=== PATIENT | male | born 1990 | race Caucasian/White ===

== ENCOUNTER 2018-12-17 17:26 | Inpatient (IN) | payer OTHER ==
[~2018-12-17] VITALS: Ht 167.6 cm; Wt 60.8 kg
[~2018-12-17 17:26] MED LIST: ACET650S26 GT; ALLA266C2 TP; CLON0.5T GT; DOXY100C41 PO; MAG30ORA GT; MERO500V3 IV; METO-295 GT; METO25TA20 GT; MUPI22OI7 TP; PANT40TA2 GT; Silver Sulfadiazine TP; Zolpidem Tartrate GT
--- NOTE | 2018-12-17 17:40 | NUR ---
CALLED RT FOR VENT.
--- NOTE | 2018-12-17 17:41 | NUR ---
MARCELINO FROM SNF FOR COFFEE GROUNDS LEAKING FROM GT. PT AOX0, NON VERBAL, PT ON MONITOR, VSS, NAD NOTED, PENDING MD OSORIO
--- NOTE | 2018-12-17 17:53 | NUR ---
PT RECEIVED IN ER FROM SUBACUTE, TRACHED W/ 7.0 PORTEX. BREATH SOUNDS EQUAL, TRACH TUBE SECURED, PATENT. NO RESP DISTRESS NOTED. PT PLACED ON PB840 VENT W/ SETTINGS PER TRANSPORT RT. VENT IN RED OUTLET, VENT ALARMS CHECKED, AMBUBAG AT BEDSIDE, PT SX'ED AND LAVAGED TO SMALL AMOUNTS OF THICK PALE YELLOW SECRETIONS. Addendum: 12/17/18 at 1755 by MARLENY BONILLA RT Amended: Links added.
[2018-12-17] MEDS ORDERED: IV NS 0.9% 1,000 ML BAG IV ONE (18:30)
[2018-12-17] MEDS ORDERED: PANTOPRAZOLE 40 MG VIAL IV ONE (18:30)
[2018-12-17] MEDS ORDERED: ONDANSETRON HCL/PF 4 MG/2 ML VIAL IV ONE (18:30)
[2018-12-17 18:52] LABS: BASOPHILS # (AUTO) 0.1 /CMM (0.0-0.2); BASOPHILS % (AUTO) 0.4 % (0.0-2.0); EOSINOPHILS % (AUTO) 0.7 % (0.0-6.0); HEMATOCRIT 36 % (39-51); HEMOGLOBIN 11.7 g/dL (13.5-17.5); LYMPHOCYTES # (AUTO) 2.1 /CMM (0.8-4.8); LYMPHOCYTES % (AUTO) 16.9 % (20.0-44.0); MEAN CORPUSCULAR HGB CONC 33 g/dl (31.0-36.0); MEAN CORPUSCULAR VOLUME 73 fL (80-96); MONOCYTES # (AUTO) 1.3 /CMM (0.1-1.30); MONOCYTES % (AUTO) 10.8 % (2.0-12.0); NEUTROPHILS # (AUTO) 8.8 /CMM (1.8-8.9); NEUTROPHILS % (AUTO) 71.2 % (43.0-81.0); PLATELET COUNT (AUTO) 353 /CMM (150-450); RED BLOOD CELL COUNT(AUTO) 4.94 MIL/uL (4.5-6.0); WHITE BLOOD COUNT (AUTO) 12.4 K/uL (4.3-11.0)
[2018-12-17] MEDS ORDERED: ONDANSETRON HCL/PF 4 MG/2 ML VIAL ONE (18:52)
[2018-12-17] MEDS ORDERED: PANTOPRAZOLE 40 MG VIAL ONE (18:52)
[2018-12-17 19:04] LABS: ALBUMIN 4.1 g/dL (3.4-5.0); BILIRUBIN,DIRECT 0.2 mg/dL (0.0-0.2); BILIRUBIN,TOTAL 0.6 mg/dL (0.2-1.0); CALCIUM, SERUM 9.4 mg/dL (8.5-10.1); CREATININE 0.4 mg/dL (0.6-1.3); TOTAL PROTEIN, SERUM 8.7 g/dL (6.4-8.2)
--- NOTE | 2018-12-17 20:10 | NUR ---
VERONICA WAS CALLED. MERCHANDISE SUPERVISOR WAS PAGED.
--- NOTE | 2018-12-17 20:14 | NUR ---
NICOLASA [phone]
--- NOTE | 2018-12-17 20:31 | NUR ---
CALLED HOUSE SUP FOR TELE BED.
--- NOTE | 2018-12-17 20:45 | NUR ---
TELE BED 325-2 GIVEN
--- NOTE | 2018-12-17 21:11 | NUR ---
REPORT GIVEN TO ESTRELLITA WHYTE FOR [facility]; PT WILL BE TRANSPORTED TO 3RD FLOOR
[2018-12-17 21:14] VITALS: BP 91/65
[2018-12-17] MEDS ORDERED: ZOLPIDEM TARTRATE 5 MG TABLET PO PRN (22:00)
[2018-12-17] MEDS ORDERED: ONDANSETRON HCL/PF 4 MG/2 ML VIAL IVP PRN (22:00)
[2018-12-17] MEDS ORDERED: Z GUARD REMEDY 2 OZ OINT TP PRN (22:00)
[2018-12-17] MEDS ORDERED: ACETAMINOPHEN 325 MG TABLET PO PRN (22:00)
[2018-12-17 22:03] LABS: EOSINOPHILS % (MANUAL) 1 % (0-4); LYMPHOCYTES % (MANUAL) 16 % (16-48); MONOCYTES % (MANUAL) 9 % (0-11.0); NEUTROPHILS % (MANUAL) 74 (42-76)
--- NOTE | 2018-12-17 23:00 | NUR ---
TOP SPOTTER NOTE: RECEIVED PATIENT FROM ER, NO ACUTE DISTRESS NOTED. VENT SETTING IN PLACE. BREATHING EVEN AND UNLABORED, NO SOB NOTED. IV TO LAC IN PLACE. G-TUBE IN PLACE. BED LOCKED AND IN LOWEST POSITION, WILL CONTINUE TO MONITOR.
[2018-12-18] VITALS: BP 139/82
[2018-12-18 04:00] VITALS: BP 135/99
[2018-12-18] MEDS: HYDROCODONE/APAP 5/325MG 1 EACH TABLET PO PRN (04:17)
--- NOTE | 2018-12-18 04:30 | NUR ---
TRESTLE BUILDER NOTE: PATIENT NOTED WITH ELEVATED HR AT 150, NORCO 5/325MG 1 TAB VIA G-TUBE GIVEN PER MD ORDER. WILL CONTINUE TO MONITOR.
--- NOTE | 2018-12-18 06:35 | NUR ---
RT Pt received trach'd and on [facility] vent w charted settings. Vent is plugged into red outlet w bmv @ hob. Alarms are set and audible. Trach is secure and patent. Pt sx'd w no adverse reactions. No respiratory distress noted t/o shift. Addendum: 12/18/18 at 0636 by VANDANA FERRER RT Amended: Links added.
--- NOTE | 2018-12-18 06:45 | NUR ---
COVERED BUCKLE ASSEMBLER NOTE: PATIENT RESTING IN BED, NO ACUTE DISTRESS NOTED. VENT SETTING IN PLACE. BREATHING EVEN AND UNLABORED, NO SOB NOTED. IV TO LAC IN PLACE. G-TUBE IN PLACE. BED LOCKED AND IN LOWEST POSITION, WILL ENDORSE TO DAY NURSE TO CONTINUE WITH PLAN OF CARE.
--- NOTE | 2018-12-18 07:50 | NUR ---
OPERATIONS ANALYST OPENING NOTES RECEIVED PT RESTING IN BED WITH HOB ELEVATED. PT IS NONVERBAL. CURRENTLY ON A MECHANICAL VENT, SATURATING AT 99%. RT AT BEDSIDE. PT ABLE TO TOLERATE VENT SETTINGS. IV SITE TO LAC INTACT, NO INFILTRATION NOTED. DRESSING KEPT CLEAN AND DRY. PT IS CONTRACTED TO BOTH UPPER/LOWER EXTREMITIES. PT FREQUENTLY NEEDS SUCTIONING. SKIN IRRITATION NOTED TO GT STOMA SITE AND IS LEAKING FLUID. WILL REPOSITION PT PER PROTOCOL. SAFETY MEASURES ARE IN PLACE. WILL MONITOR THROUGHOUT SHIFT FOR CONTINUITY OF CARE.
[2018-12-18 07:51] LABS: BASOPHILS # (AUTO) 0.1 /CMM (0.0-0.2); BASOPHILS % (AUTO) 0.5 % (0.0-2.0); EOSINOPHILS % (AUTO) 0.6 % (0.0-6.0); HEMATOCRIT 39 % (39-51); HEMOGLOBIN 12.6 g/dL (13.5-17.5); LYMPHOCYTES # (AUTO) 2.1 /CMM (0.8-4.8); LYMPHOCYTES % (AUTO) 12.9 % (20.0-44.0); MEAN CORPUSCULAR HGB CONC 32 g/dl (31.0-36.0); MEAN CORPUSCULAR VOLUME 72 fL (80-96); MONOCYTES # (AUTO) 1.7 /CMM (0.1-1.30); NEUTROPHILS # (AUTO) 12.6 /CMM (1.8-8.9); PLATELET COUNT (AUTO) 394 /CMM (150-450); RED BLOOD CELL COUNT(AUTO) 5.37 MIL/uL (4.5-6.0); WHITE BLOOD COUNT (AUTO) 16.6 K/uL (4.3-11.0)
[2018-12-18 08:00] VITALS: BP 102/69
[2018-12-18 08:06] LABS: CALCIUM, SERUM 9.7 mg/dL (8.5-10.1); CREATININE 0.4 mg/dL (0.6-1.3); MAGNESIUM 2.2 mg/dL (1.8-2.4); PHOSPHORUS 3.8 mg/dL (2.5-4.9)
--- NOTE | 2018-12-18 08:15 | NUR ---
MS RN NOTES-- PT WAS SEEN AND EXAMINED BY DR. BECERRA W/ ORDERS FOR GI CONSULT, SPUTUM CULTURE, TO REMAIN NPO AND NO GT FEEDING AT THIS TIME, IV NS BOLUS 1L, THEN NS @80ML/HR. ORDERS READ BACK AND VERIFIED. ORDERS NOTED AND CARRIED OUT.
[2018-12-18 08:17] LABS: POTASSIUM 2.8 mmol/L (3.5-5.1)
[2018-12-18] MEDS: PANTOPRAZOLE 40 MG VIAL IV SCH ×2 (08:59→20:56)
[2018-12-18] MEDS ORDERED: POTASSIUM CL. PREMIX PERIPHER. 50 ML IV SCH (09:00)
[2018-12-18] MEDS ORDERED: IV NS 0.9% 1,000 ML IV PRN (09:07)
[2018-12-18] MEDS ORDERED: IV NS 0.9% 1,000 ML BAG IV PRN (09:30)
[2018-12-18] MEDS ORDERED: FEE PK DOSING 1 MIN EA MC ONE (10:11)
[2018-12-18] MEDS: VANCOMYCIN 0.75 GM in IV D5W 250 ML IV SCH ×2 (10:20→18:10)
[2018-12-18 11:01] LABS: LYMPHOCYTES % (MANUAL) 8 % (16-48); MONOCYTES % (MANUAL) 7 % (0-11.0); NEUTROPHILS % (MANUAL) 82 (42-76); REACTIVE LYMPHOCYTES 3 % (0-0)
[2018-12-18] MEDS ORDERED: LEVE500S9 GT (11:01)
[2018-12-18] MEDS ORDERED: IPRA0.2S9 IH ×2 (11:01)
[2018-12-18] MEDS ORDERED: FLUD0.1T PO (11:01)
[2018-12-18] MEDS ORDERED: ALBU2.5V38 IH ×2 (11:01)
[2018-12-18] MEDS ORDERED: NA P133E RC (11:01)
[2018-12-18] MEDS ORDERED: ASPI-1169 PO (11:01)
[2018-12-18] MEDS ORDERED: BISA10SU61 RC (11:01)
[2018-12-18] MEDS ORDERED: CLON0.5T12 GT (11:01)
[2018-12-18] MEDS ORDERED: NUT.237L30 GT (11:01)
[2018-12-18] MEDS ORDERED: ACET650S26 GT ×3 (11:01)
[2018-12-18] MEDS ORDERED: DOCU50LI GT (11:01)
[2018-12-18] MEDS ORDERED: PRED20TA GT (11:07)
[2018-12-18] MEDS ORDERED: OXCA600T5 GT (11:07)
[2018-12-18] MEDS ORDERED: MAGN400O6 GT (11:07)
[2018-12-18] MEDS ORDERED: CHOL50004 GT (11:07)
[2018-12-18] MEDS ORDERED: GLYC1TAB12 GT (11:07)
[2018-12-18] MEDS ORDERED: HYDR-4384 GT (11:07)
--- NOTE | 2018-12-18 12:00 | NUR ---
ADULT LITERACY TEACHER NOTES-- MIDLINE PLACED BY MIDLINE NURSE KATERYNA Thompson8. KEPT INTACT, DRESSING KEPT CLEAN AND DRY.
--- NOTE | 2018-12-18 12:08 | NUR ---
RT recd pt trached intact and secured on mech vent alarms on and audible bag and mask at hob sx thick yellow large amount of secretion, sample sent for lab culture no sob att will cont to monitor
[2018-12-18] MEDS: MEROPENEM 1 G in IV NS 0.9% 100 ML IV SCH ×2 (12:42→21:07)
[2018-12-18] MEDS ORDERED: MEROPENEM 500 MG in IV NS 0.9% 50 ML IV SCH (13:00)
[2018-12-18] MEDS: POTASSIUM CL. PREMIX PERIPHER. 50 ML IV SCH ×6 (14:58→20:56)
[2018-12-18 16:00] VITALS: BP 118/69
--- NOTE | 2018-12-18 18:01 | NUR ---
MS RN NOTES-- PT SEEN AND EXAMINED BY MONSE BOLTON W/ ORDERS FOR GASTROCCULT. ORDERS READ BACK AND VERIFIED. NOTED AND CARRIED OUT.
--- NOTE | 2018-12-18 18:46 | NUR ---
HOUSEHOLD APPLIANCES SALESPERSON CLOSING NOTES ALL DUE MEDS GIVEN, NEEDS MET AND RENDERED. PT IS NONVERBAL, OBTUNDED, AFEBRILE. RESPIRATIONS ARE EVEN AND UNLABORED, NOT IN ANY ACUTE DISTRESS NOTED. NO FACIAL GRIMACING OR MOANING NOTED. MIDLINE INTACT TO YASHIRA, NO INFILTRATION NOTED. DRESSING KEPT CLEAN AND DRY. SAFETY MEASURES ARE IN PLACE. REPOSITIONED PER PROTOCOL. COLLECTED GASTROOCCULT AND LAB PICKED UP SPECIMEN. WILL ENDORSE TO NEXT SHIFT FOR CONTINUITY OF CARE.
[2018-12-18 20:00] VITALS: BP 116/66
--- NOTE | 2018-12-18 20:00 | NUR ---
RN PM OPENING NOTE RESPIRATIONS ARE EVEN AND UNLABORED, NOT IN ANY ACUTE DISTRESS. ON MECHANICAL VENT SETTINGS AND ALARMS CHECKED AND MACHINE PLUGGED INTO RED OUTLET. CONTINUOUS PULSEOX MONITOR APPLIED SATURATION IS 99% WITH HEARTRATE OF 128. NO FACIAL GRIMACING OR MOANING NOTED. MIDLINE INTACT TO YASHIRA, NO INFILTRATION NOTED. DRESSING KEPT CLEAN AND DRY. SAFETY MEASURES ARE IN PLACE. REPOSITIONED PER PROTOCOL. COLLECTED GASTROOCCULT BECAUSE LAB CALLED AND SAID FIRST SAMPLE WAS NOT ENOUGHT. RM CLOSE TO NURSING STATION DOOR CURTAIN LEFT OPEN.
[2018-12-18 20:56] LABS: BASOPHILS # (AUTO) 0.1 /CMM (0.0-0.2); BASOPHILS % (AUTO) 0.4 % (0.0-2.0); HEMATOCRIT 36 % (39-51); HEMOGLOBIN 11.5 g/dL (13.5-17.5); LYMPHOCYTES # (AUTO) 1.8 /CMM (0.8-4.8); MEAN CORPUSCULAR HGB CONC 32 g/dl (31.0-36.0); MEAN CORPUSCULAR VOLUME 74 fL (80-96); MONOCYTES # (AUTO) 1.4 /CMM (0.1-1.30); MONOCYTES % (AUTO) 11.2 % (2.0-12.0); NEUTROPHILS # (AUTO) 9.5 /CMM (1.8-8.9); NEUTROPHILS % (AUTO) 73.4 % (43.0-81.0); PLATELET COUNT (AUTO) 381 /CMM (150-450); RED BLOOD CELL COUNT(AUTO) 4.88 MIL/uL (4.5-6.0); WHITE BLOOD COUNT (AUTO) 12.9 K/uL (4.3-11.0)
[2018-12-18] MEDS: SUCRALFATE 1 G/10 ML UDC GT SCH (21:20)
[2018-12-19] VITALS: BP 142/84
[2018-12-19] MEDS: VANCOMYCIN 0.75 GM in IV D5W 250 ML IV SCH ×2 (01:24→10:34)
[2018-12-19] MEDS: HYDROCODONE/APAP 5/325MG 1 EACH TABLET PO PRN (02:08)
--- NOTE | 2018-12-19 02:08 | NUR ---
pain norco administered patient appears to be in discomfort, patient has facial grimacing, and has tears in eyes with facial grimacing. norco administered as prn. will cont to monitor.
[2018-12-19 03:09] LABS: APPEARANCE,URINE SL CLOUDY (CLEAR); BILIRUBIN,URINE 1+ (NEGATIVE); BLOOD, URINE TRACE-INTA Ery/uL (NEGATIVE); COLOR,URINE YELLOW (YELLOW); KETONES,URINE 2+ (NEGATIVE); LEUKOCYTE ESTERASE ,URINE NEGATIVE (NEGATIVE); NITRITE, URINE NEGATIVE (NEGATIVE); PROTEIN,URINE TRACE mg/dl (NEGATIVE); UGLUCOSE NEGATIVE (NEGATIVE)
[2018-12-19 03:36] LABS: BACTERIA,URINE None seen /HPF (None Seen); SQUAMOUS EPITHELIAL CELL,UR Few /HPF (None Seen); URINE AMORPHOUS URATE Few /HPF (None Seen); WBC,URINE 0-2 /HPF (0-3)
[2018-12-19 04:00] VITALS: BP 120/79
[2018-12-19] MEDS: MEROPENEM 1 G in IV NS 0.9% 100 ML IV SCH ×3 (05:34→21:16)
--- NOTE | 2018-12-19 06:34 | NUR ---
RN PM OPENING NOTE RESPIRATIONS ARE EVEN AND UNLABORED, NOT IN ANY ACUTE DISTRESS. ON MECHANICAL VENT SETTINGS AND ALARMS CHECKED AND MACHINE PLUGGED INTO RED OUTLET. CONTINUOUS PULSEOX MONITOR reads SATURATION IS 100% WITH HEARTRATE OF 142. NO FACIAL GRIMACING OR MOANING NOTED. MIDLINE INTACT TO YASHIRA, NO INFILTRATION NOTED. DRESSING KEPT CLEAN AND DRY. SAFETY MEASURES ARE IN PLACE. RM CLOSE TO NURSING STATION DOOR CURTAIN LEFT OPEN Addendum: 12/19/18 at 0638 by GUNJAN ARREDONDO RN should be labeled closing note.
[2018-12-19 06:47] LABS: CALCIUM, SERUM 9.2 mg/dL (8.5-10.1); CREATININE 0.4 mg/dL (0.6-1.3); POTASSIUM 3.6 mmol/L (3.5-5.1)
--- NOTE | 2018-12-19 07:59 | NUR ---
RN NOTES PATIENT NON-VERBAL, BREATHING EVEN AND UNLABORED, NO SOB NOTED, TOLERATING CURRENT VENT SETTINGS, PATIENT NOTED TO HAVE 101.2 TEMPERATURE. COOLING MEASURES PROVIDED. WILL INFORM MD. AC MIDLINE PATENT AND FLUSHING, NS RUNNING AT 80ML/HR. PATIENT ON ISOFLEX MATTRESS, DAYANA. HEELS OFFLOADED, KEPT COMFORTABLE, NEEDS ATTENDED, CALL LIGHT WITHIN REACH, WILL CONTINUE TO MONITOR.
[2018-12-19 08:00] VITALS: BP 122/70
--- NOTE | 2018-12-19 08:05 | NUR ---
WOUND CARE CONSULT WOUND CARE RECEIVED CONSULT FOR ABDOMINAL EXCORIATION, BUTTOCK REDNESS,LFA REDNESS/DRYNESS. WOUND CARE WILL DEFER CONSULT AND TREATMENT PLANS TO PLASTIC SURGICAL TEAM THEY ARE CURRENTLY FOLLOWING THIS PATIENT. PATIENT WITH MARK AT 8, ALL PRESSURE ULCER PREVENTION MEASURES ARE NOTED TO BE IN PLACE. WILL SEE PRN.
--- NOTE | 2018-12-19 08:13 | NUR ---
RN NOTES INFORMED DR. WASHIGNTON RE: TEMPERATURE OF 101.[address] HR OF 140[address] WASHINGTON GAVE VERBAL ORDERS. ORDERS NOTED AND CARRIED OUT.
[2018-12-19] MEDS ORDERED: LORAZEPAM INJ 2 MG/ML VIAL IV STA (08:18)
[2018-12-19] MEDS ORDERED: HYDROCODONE/APAP 5/325MG 1 EACH TABLET GT PRN (08:30)
[2018-12-19] MEDS ORDERED: IPRATROPIUM NEB FS 0.5 MG/2.5 ML AMPUL.NEB IH PRN (08:30)
[2018-12-19] MEDS ORDERED: Z GUARD REMEDY 2 OZ OINT TP PRN (08:30)
[2018-12-19] MEDS ORDERED: IV NS 0.9% 1,000 ML IV PRN (08:30)
[2018-12-19] MEDS ORDERED: GLUCERNA 1.2 1,000 ML BOTTLE GT SCH (08:30)
[2018-12-19] MEDS ORDERED: BISACODYL SUPP (10 MG) 10 MG/SUPP.RECT SUPP.RECT RC PRN (08:30)
[2018-12-19] MEDS ORDERED: ACETAMINOPHEN 650 MG/20.3 ML UDC GT PRN (08:30)
[2018-12-19] MEDS ORDERED: MAGNESIUM HYDROXIDE 30 ML UDC GT PRN (08:30)
[2018-12-19] MEDS ORDERED: IV NS 0.9% 1,000 ML BAG IV ONE (08:30)
[2018-12-19] MEDS: SUCRALFATE 1 G/10 ML UDC GT SCH ×4 (08:38→21:09)
--- NOTE | 2018-12-19 09:35 | NUR ---
RT RECD PT TRACHED INTACT & SECURED ON MECH VENT JAMI ORDERED SETTINGS ALARMS ON & AUDIBLE BAG AND MASK AT HOB SX LARGE AMOUNT OF YELLOW SECRETIONS NO SOB WILL CONT TO MONITOR
[2018-12-19 09:40] LABS: BASOPHILS % (AUTO) 0.4 % (0.0-2.0); EOSINOPHILS % (AUTO) 0.5 % (0.0-6.0); HEMATOCRIT 30 % (39-51); HEMOGLOBIN 9.5 g/dL (13.5-17.5); LYMPHOCYTES # (AUTO) 0.7 /CMM (0.8-4.8); LYMPHOCYTES % (AUTO) 5.2 % (20.0-44.0); MEAN CORPUSCULAR HGB CONC 32 g/dl (31.0-36.0); MEAN CORPUSCULAR VOLUME 74 fL (80-96); MONOCYTES # (AUTO) 1.2 /CMM (0.1-1.30); MONOCYTES % (AUTO) 9.6 % (2.0-12.0); NEUTROPHILS # (AUTO) 10.6 /CMM (1.8-8.9); NEUTROPHILS % (AUTO) 84.3 % (43.0-81.0); PLATELET COUNT (AUTO) 286 /CMM (150-450); RED BLOOD CELL COUNT(AUTO) 4.07 MIL/uL (4.5-6.0); WHITE BLOOD COUNT (AUTO) 12.5 K/uL (4.3-11.0)
[2018-12-19] MEDS: IV NS 0.9% 1,000 ML IV PRN (09:42)
[2018-12-19] MEDS: DOCUSATE SODIUM LIQ 100 MG/10 ML UDC GT SCH ×2 (09:43→17:17)
[2018-12-19] MEDS: clonazePAM 0.5 MG TABLET GT SCH ×2 (09:43→21:09)
[2018-12-19] MEDS: predniSONE 20 MG TABLET GT SCH (09:43)
[2018-12-19] MEDS: CHOLECALCIFEROL 1,000 UNIT TABLET (VIT D3) GT SCH (09:43)
[2018-12-19] MEDS: GLYCOPYRROLATE 1 MG TABLET GT SCH ×2 (09:43→17:17)
[2018-12-19] MEDS: OXCARBAZEPINE 150 MG TABLET GT SCH ×2 (09:44→21:09)
[2018-12-19] MEDS: PANTOPRAZOLE 40 MG VIAL IV SCH ×2 (09:45→21:09)
[2018-12-19] MEDS: ACETAMINOPHEN 650 MG/20.3 ML UDC GT SCH ×2 (09:47→21:16)
[2018-12-19] MEDS: LEVETIRACETAM SOL (5 ML) 100 MG/ML UDC GT SCH ×2 (09:47→17:21)
[2018-12-19 09:50] LABS: CALCIUM, SERUM 7.7 mg/dL (8.5-10.1); CREATININE 0.3 mg/dL (0.6-1.3); POTASSIUM 3.2 mmol/L (3.5-5.1)
[2018-12-19] MEDS: FLUDROCORTISONE 0.1 MG TABLET PO SCH ×2 (10:33→17:17)
[2018-12-19 12:00] VITALS: BP 89/74
[2018-12-19] MEDS: GLUCERNA 1.2 1,000 ML BOTTLE GT PRN (12:59)
[2018-12-19] MEDS ORDERED: ALBUTEROL FS 2.5 MG/0.5 ML VIAL.NEB NEB PRN (13:30)
[2018-12-19] MEDS: IPRATROPIUM NEB FS 0.5 MG/2.5 ML AMPUL.NEB IH SCH ×2 (14:39→19:37)
[2018-12-19] MEDS: ALBUTEROL FS 2.5 MG/0.5 ML VIAL.NEB NEB SCH ×2 (14:40→19:38)
[2018-12-19 16:00] VITALS: BP 104/61
--- NOTE | 2018-12-19 16:00 | NUR ---
RN NOTES RESIDUAL CHECKED WITH 10CC.
--- NOTE | 2018-12-19 16:47 | NUR ---
RN NOTES INFORMED DR. BECERRA RE: K LEVEL OF 3.2 TWICE VIA TEXT. NO NEW ORDER AT THIS TIME.
[2018-12-19] MEDS: ASPIRIN 81 MG TAB.CHEW PO SCH (17:17)
[2018-12-19] MEDS: VANCOMYCIN 1 GM in IV D5W 250 ML IV SCH (17:21)
--- NOTE | 2018-12-19 18:50 | NUR ---
RN NOTES PATIENT NON-VERBAL, TOLERATING VENT SETTINGS WELL, TELE MONITOR SHOWS SR 80, TURNED AND REPOSITIONED EVERY 2 HOURS, GTF ONGOING AND TOLERATING WELL, TF RESIDUAL 10CC. HOB ELEVATED AT ALL TIMES FOR ASPIRATION PRECAUTION. Z-GUARD AND MEPILEX APPLIED. NEEDS ATTENDED, CALL LIGHT WITHIN REACH, RECEIVED ORDERS FROM HOANG JOYNER NP. ORDER NOTED AND CARRIED OUT. WILL ENDORSE TO FOOT SETTER FOR [facility].
[2018-12-19] MEDS ORDERED: POTASSIUM CHLORIDE 20 MEQ POWDER PACKET GT ONE (19:30)
--- NOTE | 2018-12-19 19:38 | NUR ---
PT RECEIVED TRACHED W/ 7.0 PORTEX. TRACH TUBE SECURED AND PATENT. PT IS NON VERBAL. NO RESP DISTRESS NOTED AT THIS TIME. VENT PLUGGED INTO RED OUTLET, VENT ALARMS CHECKED, AMBUBAG AT BEDSIDE, Q6 BREATHING TX GIVEN PER MD'S ORDER. NO ADVERSE REACTION NOTED. PT SUCTIONED AND LAVAGED TO SMALL AMOUNTS OF THICK PALE YELLOW SECRETIONS. WILL CONTINUE TO MONITOR THE PT.
[2018-12-19 20:00] VITALS: BP 114/66
--- NOTE | 2018-12-19 20:00 | NUR ---
PRESTIDIGITATOR NOTES NERA FROM ID CAME IN AND CHECKED PT. WITH NEW ORDERS MADE. ORDERS NOTED AND CARRIED OUT. WILL CONTINUE TO MONITOR.
--- NOTE | 2018-12-19 20:48 | NUR ---
COMMERCIAL FISHING VESSEL OPERATOR NOTES FIERRO INSERTED DRAINING YELLOWISH OUTPUT MODERATE IN AMOUNT. PT TOLERATED WELL. NO S/SX OF ANY PAIN OR DISCOMFORT AT THIS TIME. WILL CONTINUE TO MONITOR.
[2018-12-20] VITALS: BP 112/59
[2018-12-20] MEDS: LEVETIRACETAM SOL (5 ML) 100 MG/ML UDC GT SCH ×3 (01:20→17:19)
[2018-12-20] MEDS: IPRATROPIUM NEB FS 0.5 MG/2.5 ML AMPUL.NEB IH SCH ×4 (01:21→19:14)
[2018-12-20] MEDS: ALBUTEROL FS 2.5 MG/0.5 ML VIAL.NEB NEB SCH ×4 (01:21→19:14)
[2018-12-20] MEDS: IV NS 0.9% 1,000 ML IV PRN ×2 (01:27→17:12)
[2018-12-20] MEDS: VANCOMYCIN 1 GM in IV D5W 250 ML IV SCH ×3 (01:30→18:00)
[2018-12-20 04:00] VITALS: BP 111/61
[2018-12-20] MEDS: MEROPENEM 1 G in IV NS 0.9% 100 ML IV SCH ×3 (05:35→20:56)
--- NOTE | 2018-12-20 06:38 | NUR ---
OFFICE RN NOTES PT NON VERBAL. RESPONSIVE TO TACTILE STIMULI. WITH SAME VENT SETTINGS. NOT IN ANY DISTRESS. NO SOB NOTED. NO S/SX OF ANY PAIN OR DISCOMFORT AT THIS TIME. ON TELE ST @ 120 WITH IVF INFUSING WELL. WITH GT CLAMPED. WITH F/C DRAINING TO YELLOWISH OUTPUT MODERATE IN AMOUNT. AM CARE DONE. MONITORED ACCORDINGLY. CALL LIGHT WITHIN REACH. BED IN LOWEST POSITION. SR UP X3 WITH BED ALARM ON FOR SAFETY. WILL ENDORSE TO NEXT SHIFT.
--- NOTE | 2018-12-20 07:02 | NUR ---
SAMPLE SAWYER NOTES PATIENT IN BED, HOB ELEVATED, NON VERBAL, ON VENT. NO ACUTE DISTRESS NOTED. BREATHING UNLABORED. IV ACCESS PATENT AND INTACT, NO REDNESS OR SWELLING NOTED. SAFETY MEASURES IN PLACE. CALL LIGHT WITHIN REACH. WILL CONTINUE TO MONITOR ACCORDINGLY.
[2018-12-20] MEDS: SUCRALFATE 1 G/10 ML UDC GT SCH ×4 (07:30→21:42)
[2018-12-20] MEDS: PANTOPRAZOLE 40 MG VIAL IV SCH ×2 (08:18→20:56)
[2018-12-20] MEDS: CHOLECALCIFEROL 1,000 UNIT TABLET (VIT D3) GT SCH (09:00)
[2018-12-20] MEDS: DOCUSATE SODIUM LIQ 100 MG/10 ML UDC GT SCH ×2 (09:00→17:00)
[2018-12-20] MEDS: clonazePAM 0.5 MG TABLET GT SCH ×2 (09:00→20:56)
[2018-12-20] MEDS: predniSONE 20 MG TABLET GT SCH (09:00)
[2018-12-20] MEDS: GLYCOPYRROLATE 1 MG TABLET GT SCH ×2 (09:00→17:11)
[2018-12-20] MEDS: OXCARBAZEPINE 150 MG TABLET GT SCH ×2 (09:00→20:56)
[2018-12-20] MEDS: ACETAMINOPHEN 650 MG/20.3 ML UDC GT SCH ×2 (09:00→20:56)
[2018-12-20] MEDS: FLUDROCORTISONE 0.1 MG TABLET PO SCH ×2 (09:00→17:11)
--- NOTE | 2018-12-20 10:20 | NUR ---
DIGITAL CARTOGRAPHER NOTES EGD DONE BY DR MOCTEZUMA, PATIENT IN STABLE CONDITION. RECEIVED NEW ORDERS MAY CONTINUE TUBE FEEDING AND USE GT ACCESS AT 1300 TODAY.
[2018-12-20] MEDS: GLUCERNA 1.2 1,000 ML BOTTLE GT PRN (13:36)
[2018-12-20 14:00] LABS: ALBUMIN 2.9 g/dL (3.4-5.0); BILIRUBIN,TOTAL 0.5 mg/dL (0.2-1.0); CALCIUM, SERUM 8.1 mg/dL (8.5-10.1); CREATININE 0.2 mg/dL (0.6-1.3); POTASSIUM 3.6 mmol/L (3.5-5.1); TOTAL PROTEIN, SERUM 6.6 g/dL (6.4-8.2)
[2018-12-20 16:00] VITALS: BP 119/70
[2018-12-20] MEDS: ASPIRIN 81 MG TAB.CHEW PO SCH (17:11)
[2018-12-20] MEDS: NYSTATIN/TRIAMCIN OINT 15 GM TUBE TP SCH (18:22)
--- NOTE | 2018-12-20 19:00 | NUR ---
SUPERCALENDER OPERATOR HELPER NOTES PATIENT IN BED, HOB ELEVATED, NON VERBAL, ON VENT. NO ACUTE DISTRESS NOTED. BREATHING UNLABORED. IV ACCESS PATENT AND INTACT, NO REDNESS OR SWELLING NOTED. TOLERATING GTUBE FEEDING WELL.DUE MEDICATIONS GIVEN, NO ASE NOTED, NEEDS ATTENDED AND ANTICIPATED. SAFETY MEASURES IN PLACE. CALL LIGHT WITHIN REACH. ENDORSED TO NIGHT NURSE FOR CONTINUITY OF CARE.
--- NOTE | 2018-12-20 19:49 | NUR ---
PT RCVD TRACH'D ON MECHANICAL VENT WITH CHARTED SETTINGS. HHN TX JAMI WELL. SX DONE. PT TRACH IS PATENT AND SECURE. VENT PLUGGED INTO RED OUTLET. ALARMS ARE ON AND AUDIBLE. AMBU BAG AT BEDSIDE. Addendum: 12/20/18 at 1950 by SHAMAR RAYO RT Amended: Links added.
[2018-12-20 20:34] VITALS: BP 131/74
[2018-12-20] MEDS: VANCOMYCIN 0.75 GM in IV D5W 250 ML IV SCH (21:42)
[2018-12-21 00:59] VITALS: BP 106/69
[2018-12-21] MEDS: ALBUTEROL FS 2.5 MG/0.5 ML VIAL.NEB NEB SCH ×4 (01:07→19:54)
[2018-12-21] MEDS: IPRATROPIUM NEB FS 0.5 MG/2.5 ML AMPUL.NEB IH SCH ×4 (01:07→19:53)
[2018-12-21] MEDS: LEVETIRACETAM SOL (5 ML) 100 MG/ML UDC GT SCH ×3 (01:11→16:35)
[2018-12-21] MEDS: IV NS 0.9% 1,000 ML IV PRN (02:06)
[2018-12-21 04:00] VITALS: BP 116/65
[2018-12-21] MEDS: MEROPENEM 1 G in IV NS 0.9% 100 ML IV SCH ×3 (05:10→20:27)
[2018-12-21] MEDS: VANCOMYCIN 0.75 GM in IV D5W 250 ML IV SCH ×3 (06:08→21:46)
--- NOTE | 2018-12-21 06:28 | NUR ---
CRYPTOLOGIC TECHNICIAN NOTES PT NON VERBAL. RESPONSIVE TO TACTILE STIMULI. WITH SAME VENT SETTINGS. NOT IN ANY DISTRESS. NO SOB NOTED. NO S/SX OF ANY PAIN OR DISCOMFORT AT THIS TIME. ON TELE SR @ 70 WITH IVF INFUSING WELL. WITH GTF INFUSING WELL. WITH F/C DRAINING TO YELLOWISH OUTPUT MODERATE IN AMOUNT. AM CARE DONE. MONITORED ACCORDINGLY. CALL LIGHT WITHIN REACH. BED IN LOWEST POSITION. SR UP X3 WITH BED ALARM ON FOR SAFETY. WILL ENDORSE TO NEXT SHIFT.
--- NOTE | 2018-12-21 07:30 | NUR ---
TERRAZZO WORKER APPRENTICE OPENING NOTES RECEIVED PATIENT ON BED IN SIDE LYING POSITION, ON VENT SETTING. REPOSITIONED PATIENT SUPINE WITH HEAD OF BED ELEVATED. PATIENT NON VERBAL AND RESPONSIVE TO TACTILE STIMULI. RESPIRATION EVEN AND NON LABORED WITH NO ACUTE RESPIRATORY DISTRESS. ABDOMEN SOFT AND NON DISTENDED WITH ACTIVE BOWEL SOUNDS, ON FIERRO CATHETER OUTPUT OF YELLOW CLEAR URINE. PATIENT HAS NO S/SX OF DISCOMFORT AT THIS TIME. RUNNING G TUBE FEEDING AT 55 ML/HR. WITH LEFT UPPER ARM MIDLINE RUNNING NS AT 150 ML/HR. PER TELE MONITOR OF SR 91. WILL CONTINUE TO EVALUATE CARE.
[2018-12-21 07:52] LABS: CREATININE 0.3 mg/dL (0.6-1.3); POTASSIUM 3.3 mmol/L (3.5-5.1)
--- NOTE | 2018-12-21 07:56 | NUR ---
RT NOTE PT RCVD TRACH'D ON MECHANICAL VENT WITH CHARTED SETTINGS. HHN TX JAMI WELL. SX DONE. PT TRACH IS PATENT AND SECURE. VENT PLUGGED INTO RED OUTLET. ALARMS ARE ON AND AUDIBLE. AMBU BAG AT BEDSIDE.
[2018-12-21 08:00] VITALS: BP 111/79
[2018-12-21] MEDS: PANTOPRAZOLE 40 MG VIAL IV SCH ×2 (08:53→21:16)
[2018-12-21] MEDS: FLUDROCORTISONE 0.1 MG TABLET PO SCH ×2 (08:53→16:35)
[2018-12-21] MEDS: ACETAMINOPHEN 650 MG/20.3 ML UDC GT SCH ×2 (08:53→21:16)
[2018-12-21] MEDS: DOCUSATE SODIUM LIQ 100 MG/10 ML UDC GT SCH ×2 (08:53→16:35)
[2018-12-21] MEDS: CHOLECALCIFEROL 1,000 UNIT TABLET (VIT D3) GT SCH (08:53)
[2018-12-21] MEDS: OXCARBAZEPINE 150 MG TABLET GT SCH ×2 (08:54→21:16)
[2018-12-21] MEDS: SUCRALFATE 1 G/10 ML UDC GT SCH ×4 (08:54→21:16)
[2018-12-21] MEDS: clonazePAM 0.5 MG TABLET GT SCH ×2 (08:54→21:15)
[2018-12-21] MEDS: GLYCOPYRROLATE 1 MG TABLET GT SCH ×2 (08:54→16:35)
[2018-12-21] MEDS: predniSONE 20 MG TABLET GT SCH (08:54)
[2018-12-21] MEDS: NYSTATIN/TRIAMCIN OINT 15 GM TUBE TP SCH (08:58)
[2018-12-21 10:24] LABS: BASOPHILS % (AUTO) 0.6 % (0.0-2.0); HEMATOCRIT 27 % (39-51); HEMOGLOBIN 8.8 g/dL (13.5-17.5); LYMPHOCYTES # (AUTO) 1.5 /CMM (0.8-4.8); LYMPHOCYTES % (AUTO) 27.7 % (20.0-44.0); MEAN CORPUSCULAR HGB CONC 33 g/dl (31.0-36.0); MEAN CORPUSCULAR VOLUME 74 fL (80-96); MONOCYTES # (AUTO) 0.6 /CMM (0.1-1.30); MONOCYTES % (AUTO) 11.9 % (2.0-12.0); NEUTROPHILS # (AUTO) 3.1 /CMM (1.8-8.9); NEUTROPHILS % (AUTO) 56.8 % (43.0-81.0); PLATELET COUNT (AUTO) 212 /CMM (150-450); RED BLOOD CELL COUNT(AUTO) 3.63 MIL/uL (4.5-6.0); WHITE BLOOD COUNT (AUTO) 5.4 K/uL (4.3-11.0)
[2018-12-21] MEDS ORDERED: POTASSIUM CHLORIDE 20 MEQ POWDER PACKET GT SCH (10:30)
--- NOTE | 2018-12-21 11:47 | NUR ---
BROOCH AND BRACELET MAKER NOTES VANCOMYCIN ORDERED CAN BE GIVEN TODAY SINCE IT IS ADJUSTED ALREADY PER [facility], LAST VANCOMYCIN TROUGH ON 12/20/18 WITH 21. NO ORDER OF RE-DRAW AT THIS TIME. WILL CONTINUE TO MONITOR.
[2018-12-21 16:00] VITALS: BP 136/72
[2018-12-21] MEDS: GLUCERNA 1.2 1,000 ML BOTTLE GT PRN (16:27)
--- NOTE | 2018-12-21 19:03 | NUR ---
CHANGE MANAGEMENT EXPERT CLOSING NOTES PATIENT NON VERBAL IN SUPINE POSITION, ON VENT SETTING RESPONSIVE TO TACTILE AND LIGHT PAIN STIMULI. RESPIRATION EVEN AND NON LABORED WITH NO ACUTE RESPIRATORY DISTRESS. ABDOMEN SOFT AND NON DISTENDED WITH ACTIVE BOWEL SOUNDS, ON FIERRO CATHETER OUTPUT OF YELLOW CLEAR URINE. G-TUBE PRESENT WITH NO RESIDUAL NOTED RUNNING 50 ML/HR WITH JEVITY 1.2. PATIENT HAS NO S/SX OF DISCOMFORT AT THIS TIME. IV SITE AT LEFT AC GAUGE 20 AND LEFT UPPER ARM MIDLINE NO S/SX OF INFILTRATION. PER TELE MONITOR OF SR 66. ENDORSED PATIENT CASE TO NEXT SHIFT.
--- NOTE | 2018-12-21 19:21 | NUR ---
RN NOTES: RN NOTES: RECEIVED AWAKE ON BED,SEMI FOWLERS POSITION,NON VERBAL,RESPONDING TO TACTILE STIMULI, PAIN AND TOUCH, ON VENTILATOR, NO SIGN OF SOB OR ANY RESPIRATORY DISTRESS,ORIENTED TO NIGHT STAFF, ON FIERRO CATH DRAINING INTO YELLOWISH COLORED URINE AT 400 CC LEVEL , YASHIRA MIDLINE AND CANNULA LAC G#20 PATENT, NPO, G-TUBE INTACT/WORKING WITH FEEDING ONGOING GLUCERNA 1.2 AT 50 ML/HR X 24H, FALL,SAFETY AND ASPIRATION PRECAUTION OBSERVED, BED LOW AND LOCKED, CALL LIGHT WITHIN EASY REACH, NOTICE A LOT OF SALIVA/BUBBLES COMING OUT FROM THE MOUTH AND NOSE AREA, SUCTIONED AND CLEANED.KEPT ON CLOSE VISUAL CHECK.
[2018-12-21 20:00] VITALS: BP 147/92
--- NOTE | 2018-12-21 20:08 | NUR ---
RT NOTE PT RECEIVED ON [facility] VENT ON THE FOLLOWING SETTINGS: AC 10, 500, 40%, +5. PT SX'D, LARGE THICK YELLOW SECRETIONS. RN IS AWARE. BREATHING TX GIVEN, NO ADVERSE REACTIONS NOTED. NO RESP DISTRESS NOTED AT THIS TIME. VENT IS PLUGGED INTO RED OUTLET. ALARMS ARE ON AND AUDIBLE. AMBU BAG IS AT BEDSIDE. WILL CONT TO MONITOR PT THROUGHOUT THE NIGHT. Addendum: 12/21/18 at 2011 by MARLENA SAENZ RT Amended: Links added.
[2018-12-21 20:11] VITALS: BP 147/92
--- NOTE | 2018-12-21 23:01 | NUR ---
RN NOTES: ON TELE MONITOR SR-60,TURNING AND SUCTIONING DONE,DUE HHN RENDERED BY RT,FEEDING ONGOING, DUE IV/ATB GIVEN, SEIZURE PRECAUTION OBSERVED.ON CLOSE VISUAL CHECK.
[2018-12-22] VITALS: BP 135/80
[2018-12-22] MEDS: LEVETIRACETAM SOL (5 ML) 100 MG/ML UDC GT SCH ×2 (00:26→08:54)
[2018-12-22] MEDS: ALBUTEROL FS 2.5 MG/0.5 ML VIAL.NEB NEB SCH ×2 (00:52→07:15)
[2018-12-22] MEDS: IPRATROPIUM NEB FS 0.5 MG/2.5 ML AMPUL.NEB IH SCH ×2 (00:53→07:15)
--- NOTE | 2018-12-22 02:47 | NUR ---
RN NOTES: TURNING AND REPOSITIONING DONE, SPONGE BATH RENDERED, SUCTIONING DONE,CLEAN AND CHANGE, DRESSING DONE ON PEG SITE, MEPELEX APPLIED ON BONY PROMINENCES, HAD BM,WATERY STOOL BROWNISH IN COLOR, SPECIMEN COLLECTED FOR STOOL OB,Z -GUARD APPLIED ON BUTTOCKS AND INGUINAL AREA. LAB NOTIFIED READY FOR P/U SPOKE WITH MARÍA, KEPT ON CLOSE WATCH.
[2018-12-22 04:00] VITALS: BP 130/80
[2018-12-22] MEDS: MEROPENEM 1 G in IV NS 0.9% 100 ML IV SCH (04:09)
[2018-12-22 04:45] VITALS: BP 130/80
[2018-12-22] MEDS: VANCOMYCIN 0.75 GM in IV D5W 250 ML IV SCH (05:02)
--- NOTE | 2018-12-22 06:40 | NUR ---
RN NOTES: ASLEEP AT SHORT INTERVALS,NON VERBAL,QUADRIPLEGIA WITH CONTRACTURES, ON TELE MONITOR SR-80,ON MECHANICAL VENTILATOR, PEG SITE DRESSING INTACT WITH PEG FEED OF GLUCERNA 1.2 AT 50 ML/HR ONGOING, FIERRO CATH DRAINING WELL, TOTAL OUTPUT=1,650,STOOL OB SENT TO LAB,NO LABS FOR TODAY, LATEST V/S AFEBRILE BP-130/80, FOR POSSIBLE EGD IF GI BLEED CONTINUE AND CHANGING OF PEG SITE,FALL,SAFETY,SEIZURE AND ASPIRATION PRECAUTION OBSERVED.ON CLOSE WATCH. ENDORSED FOR THE CONTINUITY OF CARE.
--- NOTE | 2018-12-22 07:18 | NUR ---
RT RECEIVED PT TRACH ON VENT WITH NOTED SETTINGS. WEB WEAVER DONE AND TRACH IS SECURE. VENT ALARMS CHECKED AND AUDIBLE. VENT PLUGGED IN RED OUTLET. AMBU BAG AND SPARE TRACH NOTED BEDSIDE. B/S DAYANA RHONCHI, SX WITH MOD THK QUIROGA SECRETIONS. BREATHING TX GIVEN. PT TOLERATING SETTINGS WELL. PT ON CONTINUOUS PULSE OX. NO SOB OR RESP DISTRESS NOTED. WILL CONTINUE TO MONITOR T/O SHIFT.
--- NOTE | 2018-12-22 07:54 | NUR ---
SHREDDING MACHINE OPERATOR OPENING NOTES RECEIVED PATIENT ON BED, SUPINE WITH HOB ELEVATED. PATIENT NON VERBAL AND AROUSABLE WITH TACTILE STIMULI. RESPIRATION EVEN AND NON LABORED WITH NO ACUTE RESPIRATORY DISTRESS, ON MECHANICAL VENTILATOR SETTING. ABDOMEN SOFT AND NON DISTENDED WITH ACTIVE BOWEL SOUNDS, ON F/C WITH YELLOW URINE OUTPUT. SKIN WARM TO TOUCH AND DRY, BOTH HEELS AND ELBOW PLACED ON OFFLOAD DUE TO CONTRACTURES. NO S/SX OF PAIN AND DISCOMFORT NOTED UPON ASSESSMENT. ON G-TUBE FEEDING OF GLUCERNA 1.2 AT 50 ML/HR AND TOLERATED WELL. IV SITE AT LEFT AC GAUGE 20, AND LEFT UPPER ARM MIDLINE, SITES NO S/SX OF INFILTRATION. WILL CONTINUE TO EVALUATE CARE AND FREQUENT MONITORING.
--- NOTE | 2018-12-22 07:56 | NUR ---
LIGHTHOUSE KEEPER NOTES PER TELE MONITOR PATIENT WITH SINUS RHYTHM 82.
[2018-12-22 08:00] VITALS: BP 148/87
[2018-12-22] MEDS: PANTOPRAZOLE 40 MG VIAL IV SCH (08:54)
[2018-12-22] MEDS: CHOLECALCIFEROL 1,000 UNIT TABLET (VIT D3) GT SCH (08:54)
[2018-12-22] MEDS: DOCUSATE SODIUM LIQ 100 MG/10 ML UDC GT SCH (08:54)
[2018-12-22] MEDS: ACETAMINOPHEN 650 MG/20.3 ML UDC GT SCH (08:54)
[2018-12-22] MEDS: predniSONE 20 MG TABLET GT SCH (08:54)
[2018-12-22] MEDS: GLYCOPYRROLATE 1 MG TABLET GT SCH (08:54)
[2018-12-22] MEDS: FLUDROCORTISONE 0.1 MG TABLET PO SCH (08:54)
[2018-12-22] MEDS: OXCARBAZEPINE 150 MG TABLET GT SCH (08:54)
[2018-12-22] MEDS: clonazePAM 0.5 MG TABLET GT SCH (08:55)
[2018-12-22] MEDS: NYSTATIN/TRIAMCIN OINT 15 GM TUBE TP SCH (08:55)
[2018-12-22] MEDS: SUCRALFATE 1 G/10 ML UDC GT SCH (08:57)
[2018-12-22 10:30] LABS: CALCIUM, SERUM 8.9 mg/dL (8.5-10.1); CREATININE 0.3 mg/dL (0.6-1.3); POTASSIUM 4.1 mmol/L (3.5-5.1)
--- NOTE | 2018-12-22 11:55 | NUR ---
PUFF IRONERDIRECTOR OPERATING NOTES PATIENT DISCHARGED TO [facility] ACCOMPANIED BY 2 EMT'S AND 1 RT VIA [facility]. PATIENT NON VERBAL AND RESPONSIVE TO TACTILE STIMULI. PATIENT ON FIERRO CATHETER ON WITH SNF AGREEMENT TO JUST KEEP IT IN, URINE OUTPUT DRAINED 1200 ML WITH CLEAR YELLOW URINE. PATIENT ABLE TO MOVE BM WITH SOFT BROWN STOOL. CALLED SNF AND ENDORSED TO ANGELINA RN REGARDING PATIENT CARE WITH ORDER BY DR. BECERRA TO CONTINUE CARE TO SNF. MOTHER NICOLASA NOTIFIED WELL WITH DISCHARGE. REMOVED IV AT LEFT AC AND LEFT UPPER MIDLINE. PATIENT HAS NO S/SX OF ACUTE DISTRESS, PAIN AND DISCOMFORT IN TRANSFER. ALL SKIN TREATMENT DONE. PATIENT LEFT IN STABLE CONDITION.
== END 2018-12-22 11:59 | DRG 870 ==
LOC: ER 17:35 → TELE 20:49 → MED 12-19 11:01 → TELE 12-19 11:05
PROVIDERS: ADMIT Nurse Practitioner Acute Care; ATTEND Internal Medicine
DX: A41.9 Sepsis, unspecified organism (principal); R53.2 Functional quadriplegia; G93.41 Metabolic encephalopathy; J96.21 Acute and chronic respiratory failure with hypoxia; J69.0 Pneumonitis due to inhalation of food and vomit; K29.81 Duodenitis with bleeding; E87.1 Hypo-osmolality and hyponatremia; D68.59 Other primary thrombophilia; L03.311 Cellulitis of abdominal wall; Z99.11 Dependence on respirator [ventilator] status; G93.1 Anoxic brain damage, not elsewhere classified; J98.11 Atelectasis; K94.23 Gastrostomy malfunction; Q39.6 Congenital diverticulum of esophagus; G80.9 Cerebral palsy, unspecified; R13.10 Dysphagia, unspecified; E78.5 Hyperlipidemia, unspecified; E11.9 Type 2 diabetes mellitus without complications; D63.8 Anemia in other chronic diseases classified elsewhere; E86.0 Dehydration; E87.6 Hypokalemia; F79 Unspecified intellectual disabilities; Z86.73 Personal history of transient ischemic attack (TIA), and cerebral infarction without residual deficits; M62.40 Contracture of muscle, unspecified site; F41.9 Anxiety disorder, unspecified; Z88.1 Allergy status to other antibiotic agents; Z88.0 Allergy status to penicillin; Z79.899 Other long term (current) drug therapy; G40.909 Epilepsy, unspecified, not intractable, without status epilepticus; Y83.3 Surgical operation with formation of external stoma as the cause of abnormal reaction of the patient, or of later complication, without mention of misadventure at the time of the procedure; Y92.129 Unspecified place in nursing home as the place of occurrence of the external cause; F09 Unspecified mental disorder due to known physiological condition; K27.9 Peptic ulcer, site unspecified, unspecified as acute or chronic, without hemorrhage or perforation; Y84.8 Other medical procedures as the cause of abnormal reaction of the patient, or of later complication, without mention of misadventure at the time of the procedure; L30.9 Dermatitis, unspecified
CPT/HCPCS: 31720; 36415; 36569; 71045-TC; 80048-TC; 80053-TC; 80061-TC; 80076-TC; 80202-TC; 81000-TC; 82272-TC; 83605-TC; 83690-TC; 83735-TC; 84100-TC; 84443-TC; 85025-TC; 85610-TC; 85730-TC; 86850-TC; 87040-TC; 87070-TC; 87081-TC; 87086-TC; 93307-TC; 94003-TC; 94640-TC; 94760-TC; 94762-TC; 94799-TC; A4216; A4217; A6402; A6403; C9113; G0378; J1953; J2060; J2185; J2405; J2704; J3370; J3480; J7030; J7060